=== PATIENT | female | born 1995 | race Caucasian/White ===

== ENCOUNTER 2023-12-31 12:58 | Emergency (ER) | payer OTHER ==
[~2023-12-31] VITALS: Ht 165.1 cm; Wt 90.7 kg
[2023-12-31 13:10] VITALS: BP 124/81
[2023-12-31 14:04] VITALS: BP 110/63
[2023-12-31 14:39] VITALS: BP 110/63
== END 2023-12-31 14:41 | disposition home or self-care (01) ==
LOC: ED 12:58
DX: M79.671 Pain in right foot (principal)